=== PATIENT | male | born 1995 | race Caucasian/White ===

== ENCOUNTER 2018-12-09 20:28 | Emergency (ER) | payer MEDICAID ==
[~2018-12-09] VITALS: Ht 175.3 cm; Wt 70.0 kg
[~2018-12-09 20:28] MED LIST: IBUP-1542 PO; eye drop
[2018-12-09 20:30] VITALS: BP 136/70; PULSE 78; RESP 16; Ht 175.3 cm; Wt 70.0 kg
[2018-12-09] MEDS ORDERED: IBUPROFEN 600 MG TAB PO ONE (21:00)
== END 2018-12-09 22:41 | disposition home or self-care (01) ==
LOC: FTE 20:28
DX: S89.91XA Unspecified injury of right lower leg, initial encounter (principal); W50.0XXA Accidental hit or strike by another person, initial encounter; Y92.322 Soccer field as the place of occurrence of the external cause
CPT/HCPCS: 73562; Z7502; Z7610